=== PATIENT | female | born 1985 | race American Indian/Alaskan Native ===

== ENCOUNTER 2017-05-28 15:02 | Outpatient (CLI) | payer MEDICAID | END 2017-05-28 15:03 | disposition critical access hospital (66) | LOC: EMS 15:02 | PROVIDERS: ATTEND Surgery | DX: M79.601 Pain in right arm (principal); M54.2 Cervicalgia; R51 Headache; Y04.8XXA Assault by other bodily force, initial encounter | CPT/HCPCS: A0425; A0429 ==

== ENCOUNTER 2017-05-28 15:42 | Emergency (ER) | payer MEDICAID ==
[2017-05-28] MEDS ORDERED: IBUPROFEN 800 MG TABLET PO STA (15:49)
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
[2017-05-28] MEDS ORDERED: IBUPROFEN 800 MG TABLET PO ONE (15:59)
--- NOTE | 2017-05-28 16:34 | XRAY Preliminary Report ---
Exam: XR Elbow 3 View RT IMPRESSION: Normal elbow radiography. [facility] SITE ID: [id number]
--- NOTE | 2017-05-28 16:35 | XRAY Preliminary Report ---
Exam: XR Shoulder 3 View RT IMPRESSION: Normal shoulder radiography. [facility] SITE ID: [id number]
--- NOTE | 2017-05-28 16:37 | XRAY Preliminary Report ---
Exam: XR Cervical Spine 2 View IMPRESSION: Straightening with associated mild chronic findings. No definite acute disease. [facility] SITE ID: [id number]
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
[2017-05-28 17:03] VITALS: BP 113/79
== END 2017-05-28 17:27 | disposition home or self-care (01) ==
LOC: EDUNIT# → ED 15:42
DX: S40.012A Contusion of left shoulder, initial encounter (principal); S50.01XA Contusion of right elbow, initial encounter; S13.9XXA Sprain of joints and ligaments of unspecified parts of neck, initial encounter; Y08.89XA Assault by other specified means, initial encounter; F17.200 Nicotine dependence, unspecified, uncomplicated
CPT/HCPCS: 72040; 73030; 73080; 99283; A9270

== ENCOUNTER 2017-08-03 13:17 | Outpatient (CLI) | payer MEDICAID | END 2017-08-03 13:18 | disposition critical access hospital (66) | LOC: EMS 13:17 | PROVIDERS: ATTEND Surgery | DX: M79.662 Pain in left lower leg (principal) | CPT/HCPCS: A0425; A0429 ==

== ENCOUNTER 2017-08-03 13:50 | Emergency (ER) | payer MEDICAID ==
--- NOTE | 2017-08-03 14:01 | ED Physician Documentation ---
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 presents with an abscess on the back of the left calf it has been there for a few days without fevers or chills.) Review of Systems Constitutional: denies: Fever, Chills, Fatigue Cardiac: denies: Chest pain / pressure, Palpitations Respiratory: denies: Dyspnea, Cough : denies: Now E[facility] PD PAST MEDICAL HISTORY - Past Medical History Cardiovascular: None Respiratory: None Neuro: None Endocrine/Autoimmune: None GI: None : None HEENT: None Psych: None Musculoskeletal: None Derm: None - Past Surgical History 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 - Present Medications Home Medications: Ambulatory Orders Medication Instructions Recorded Confirmed Ibuprofen [Motrin] 800 mg PO Q8H PRN #30 tablet 05/28/17 08/03/17 Sulfamethoxazole/Trimethoprim 1 each PO BID 7 Days tablet 08/03/17 [Sulfamethoxazole-Tmp Ds Tablet] - Allergies Allergies/Adverse Reactions: Allergies Allergy/AdvReac Type Severity Reaction Status Date / Time No Known Drug Allergies Allergy Verified 08/03/17 13:55 - Social History Does the pt smoke?: Yes Smoking Status: Current every day smoker Does the pt drink ETOH?: Yes Does the pt have substance abuse?: Yes - Immunizations Immunizations are current?: Yes - POLST Patient has POLST: No PD ED PE NORMAL - Vitals Vital signs reviewed: Yes - General General: Alert and oriented X 3, No acute distress - Cardiac Cardiac: RRR, No murmur - Respiratory Respiratory: No respiratory distress, Clear bilaterally - Abdomen Abdomen: Soft, Non tender - Extremities Extremities: Other (The back of the left calf there is a large pointed abscess with surrounding cellulitis, she also has numerous scabs that look like spontaneously resolved abscesses on lower extremities from other places where she has injected drugs.) - Neuro Neuro: Alert and oriented X 3, Normal speech - Psych Psych: Normal mood, Normal affect Results - Vitals Vitals: Vital Signs - 24 hr 08/03/17 13:55 Temperature 36.9 C Heart Rate 95 Respiratory 14 Rate Blood Pressure 107/55 L O2 Saturation 97 Oxygen O2 Source Room air Procedures - General procedure General procedure: She was difficult for IV access, I personally placed a 20-gauge IV in the right external jugular vein after ChloraPrep which dulce maria and flushed easily. - Abscess I&D (location) Left leg Preparation: Alcohol, Lidocaine 1%, Conscious sedation Incision: Incised with scalpel, Purulent drainage, Loculations broken, Packed, Culture obtained Other: Pt tolerated well, Dressing applied, Antibiotic prescribed - Procedural sedation Sedation prep: Informed consent, Time out completed, Last meal (8am), PE performed, AHA 1 - healthy Sedation medications: propofol (divided doses totalling 160mg) Patient status during sedation: Responds to tactile, Vitals remained stable, Maintained airway, Recovered uneventfully Sedation recovery: Recovered uneventfully Departure - Departure Disposition: 01 Home, Self Care Clinical Impression: Abscess of left leg Condition: Good Record reviewed to determine appropriate education?: Yes Instructions: ED Abscess IandD Prescriptions: Sulfamethoxazole/Trimethoprim [Sulfamethoxazole-Tmp Ds Tablet] 1 each PO BID 7 Days tablet Comments: Return or see your doctor in 2-3 days for wound check. Return if worse or if running a fever.
[2017-08-03] MEDS ORDERED: LIDOCAINE 1% 2 ML VIAL ONE (15:19)
[2017-08-03] MEDS ORDERED: PROPOFOL 200 MG/20 ML VIAL IVP ONE (15:20)
[2017-08-03] MEDS ORDERED: SODIUM CHLORIDE FLUSH 0.9% 10 ML SYRINGE IVP ONE (15:20)
[2017-08-03] MEDS ORDERED: LIDOCAINE 2%-EPI 1:100000 20 ML MDV ONE (15:24)
[2017-08-03] MEDS ORDERED: PROPOFOL 200 MG/20 ML VIAL IVP STA (15:29)
[2017-08-03] MEDS ORDERED: SULFAMETH/TRIMETH DS 800/160 MG TABLET PO STA (15:29)
[2017-08-03] MEDS ORDERED: SULFAMETH/TRIMETH DS 800/160 MG TABLET PO ONE (15:40)
[2017-08-03 19:53] VITALS: BP 102/55
== END 2017-08-03 16:20 | disposition home or self-care (01) ==
LOC: EDUNIT# → ED 13:50
DX: L02.416 Cutaneous abscess of left lower limb (principal); F17.200 Nicotine dependence, unspecified, uncomplicated; Z86.14 Personal history of Methicillin resistant Staphylococcus aureus infection; F19.10 Other psychoactive substance abuse, uncomplicated
CPT/HCPCS: 10060; 87070; 87205; 94770; 99152; 99283; 99284; A9270